=== PATIENT | male | born 1945 | race Caucasian/White ===

== ENCOUNTER 2017-04-06 12:56 | Emergency (ER) | payer MEDICARE, OTHER ==
[~2017-04-06] VITALS: Ht 177.8 cm; Wt 72.6 kg
[2017-04-06] MEDS ORDERED: CALCIUM 600 +1 EAC8 PO (13:14)
[2017-04-06] MEDS ORDERED: AMLODIPINE BESYL5 MG PO (13:15)
[2017-04-06] MEDS ORDERED: OMEPRAZOLE20 MG PO (13:15)
[2017-04-06] MEDS ORDERED: FISH OIL 1,0001 EAC2 NG (13:15)
[2017-04-06] MEDS ORDERED: COMBIVENT RESPIM4 GM INH (13:16)
[2017-04-06] MEDS ORDERED: PROVENTIL HFA6.7 GM INH (13:16)
[2017-04-06] MEDS ORDERED: SYMBICORT 16010.2 GM INH (13:16)
[2017-04-06] MEDS ORDERED: BACTRIM DS TAB1 EACH PO (14:16)
[2017-04-06] MEDS ORDERED: VENTOLIN HFA18 GM INH (14:16)
[2017-04-06] MEDS ORDERED: METHYLPREDNISOLO4 M1 PO (14:16)
== END 2017-04-06 14:39 | disposition home or self-care (01) ==
LOC: ED 12:56
DX: J40 Bronchitis, not specified as acute or chronic (principal); C61 Malignant neoplasm of prostate; C79.51 Secondary malignant neoplasm of bone; Z88.0 Allergy status to penicillin; Z79.899 Other long term (current) drug therapy
CPT/HCPCS: 71020; 80053; 84484; 85025; 94640; 99284